=== PATIENT | female | born 1995 | race Caucasian/White ===

== ENCOUNTER 2018-11-18 11:06 | Emergency (ER) | payer MEDICAID ==
[~2018-11-18] VITALS: Ht 157.5 cm; Wt 143.0 kg
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
--- NOTE | 2018-11-18 11:40 | NUR ---
Received bedside report from Teresa Cowart RN. All questions answered. NADN. No needs expressed. Pt in SI room secured for SI precautions.
[2018-11-18 11:55] LABS: CULTURE INDICATED? YES; MICROSCOPIC AUTO
[2018-11-18 11:55] LABS: BASOPHILS # (AUTO) 0.02 x10^3/uL (0-0.1); BASOPHILS % (AUTO) 0 % (0-1); EOSINOPHILS % (AUTO) 1 % (1-7); LYMPHOCYTES # (AUTO) 2.13 x10^3/uL (1-3.4); LYMPHOCYTES % (AUTO) 27 % (22-44); MD NO; MEAN CORPUSCULAR HEMOGLOBIN 30.8 pg (27.0-34.8); MEAN CORPUSCULAR HGB CONC 33.1 g/dL (32.4-35.8); MEAN CORPUSCULAR VOLUME 93.2 fL (80-100); MONOCYTES % (AUTO) 6 % (2-9); NEUTROPHILS # (AUTO) 5.27 x10^3/uL (1.8-6.8); NEUTROPHILS % (AUTO) 66 % (42-75); PLATELET COUNT 360 x10^3/uL (130-400); RED BLOOD COUNT 5.04 x10^6/uL (3.82-5.3); RED CELL DISTRIBUTION WIDTH 14.3 % (9.6-15.2)
[2018-11-18 12:04] LABS: ALBUMIN 3.9 g/dL (3.4-5.0); CALCIUM 9.1 mg/dL (8.5-10.1); CHLORIDE 109 mmol/L (98-107)
[2018-11-18 12:11] LABS: AMPHETAMINE SCREEN, URINE Negative (Negative); BARBITURATE SCREEN, URINE Negative (Negative); BENZODIAZEPINE SCREEN, URINE Negative (Negative); CANNABINOID SCREEN, URINE Negative (Negative); COCAINE SCREEN, URINE Negative (Negative); METHADONE SCREEN, URINE Negative (Negative); OPIATE SCREEN, URINE Negative (Negative)
[2018-11-18 12:16] LABS: ALANINE AMINOTRANSFERASE 24 U/L (12-78); ALKALINE PHOSPHATASE 57 U/L (45-117); ANION GAP 10 mmol/L (5-15); BILIRUBIN,TOTAL 0.8 mg/dL (0.2-1.0); CREATININE 0.85 mg/dL (0.55-1.02); TOTAL PROTEIN 7.7 g/dL (6.4-8.2)
[2018-11-18 12:27] LABS: SALICYLATE LEVEL < 1.7 mg/dL (2.8-20.0)
--- NOTE | 2018-11-18 13:41 | NUR ---
REPORT FROM NAKUL ENRIQUEZ. PT RESTING ON HOSPITAL BED. HARDY. SITTER IN PLACE [facility] EYES ON PT. ROOM SECURED.
--- NOTE | 2018-11-18 14:35 | NUR ---
cecil called, stephanie mak
--- NOTE | 2018-11-18 15:32 | NUR ---
KRIS HERE TO ASSESS PATIENT
--- NOTE | 2018-11-18 16:08 | NUR ---
[facility] STILL AT BEDSIDE FOR ASSESSMENT.
--- NOTE | 2018-11-18 16:13 | NUR ---
[facility] PT OK TO BE DC'D HOME, DOES NOT MEET LEGAL 2K. KRIS TO DISCUSS WITH .
[2018-11-18 16:23] VITALS: BP 133/94
--- NOTE | 2018-11-18 16:24 | NUR ---
Patient/Caregiver given discharge instructions and they have confirmed that they understand the instructions. Patient ambulatory with steady gait. Pt provided with taxi voucher. All personal belongings returned to pt.
== END 2018-11-18 16:33 | disposition home or self-care (01) ==
LOC: ED 14:12
DX: F33.1 Major depressive disorder, recurrent, moderate (principal); F41.1 Generalized anxiety disorder
CPT/HCPCS: 36415; 80053; 80307; 81001; 84703; 85025; 87086; 99284